=== PATIENT | male | born 1985 | race Caucasian/White ===

== ENCOUNTER 2018-12-10 10:55 | Emergency (ER) | payer OTHER ==
[2018-12-10 11:02] VITALS: BP 161/87
--- NOTE | 2018-12-10 11:03 | EDPHY ---
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 No complaint. Time Seen by Provider: 12/10/18 11:03 HPI/ROS: CHIEF COMPLAINT: Requesting assistance with alcohol dependence HISTORY OF PRESENT ILLNESS: The patient is a 33-year-old alcoholic who presents the emergency department requesting assistance with alcohol dependence. The patient reports he has been drinking approximately 3 bottles of wine a day over the past several months. The patient denies any seizure, abdominal pain or vomiting. The patient is interested in outpatient treatment for his likely impending withdrawal. The patient denies any suicidal homicidal ideation. The patient is accompanied by his spouse who is supportive in him going to outpatient detox today. The patient denies any additional acute medical complaints. REVIEW OF SYSTEMS: A comprehensive 10 point review of systems is otherwise negative aside from elements mentioned in the history of present illness. Source: Patient - Personal History Current Tetanus/Diphtheria Vaccine: Yes - Medical/Surgical History Hx Asthma: No Hx Chronic Respiratory Disease: No Hx Diabetes: No Hx Cardiac Disease: No Hx Renal Disease: No Hx Cirrhosis: No Hx Alcoholism: Yes Hx HIV/AIDS: No Hx Splenectomy or Spleen Trauma: No Other PMH: Detox, GERD, - Social History Smoking Status: Never smoked - Physical Exam Exam: General Appearance: Alert, no distress Eyes: Pupils equal and round no pallor or injection ENT, Mouth: Mucous membranes moist Respiratory: There are no retractions, lungs are clear to auscultation Cardiovascular: Regular rate and rhythm Gastrointestinal: Abdomen is soft and nontender, no masses, bowel sounds normal Neurological: A&O, normal motor function, normal sensory exam, normal cranial nerves Skin: Warm and dry, no rashes Musculoskeletal: Neck is supple nontender Extremities: symmetrical, full range of motion Psychiatric: Patient is oriented X 3, there is no agitation Constitutional: Initial Vital Signs Temperature (C) 36.7 C 12/10/18 10:59 Heart Rate 88 12/10/18 10:59 Respiratory Rate 16 12/10/18 10:59 Blood Pressure 161/87 H 12/10/18 10:59 O2 Sat (%) 93 12/10/18 10:59 O2 Delivery Mode Room Air Allergies/Adverse Reactions: No Known Allergies Allergy (Unverified 12/10/18 10:59) Medical Decision Making ED Course/Re-evaluation: The patient is nontoxic well-appearing. He was given 50 mg of Librium in the emergency department. The patient has been given the [facility] and is interested in going there today. Departure - Departure Disposition: Home, Routine, Self-Care Clinical Impression: Alcohol dependence Condition: Good Instructions: Alcohol Dependence (ED) Additional Instructions: 1. Please go to the [facility] for further assistance with alcohol dependence and withdrawal management. 2. While there, please talk to them about the possibility of receiving a Vivitrol injection. 3. Return to the ED for symptoms of severe withdrawal including vomiting, severe pain, seizure or other concerns. Referrals: [facility] [Outside] - As per Instructions
[2018-12-10] MEDS ORDERED: chlordiazePOXIDE 25 MG CAP PO ONE (11:09)
[2018-12-10] MEDS ORDERED: CHLORDIAZEPOXIDE 25MG PREPK#6 BTL TAKEHOME ONE ×2 (11:19→11:23)
== END 2018-12-10 11:20 | disposition home or self-care (01) ==
DX: F10.20 Alcohol dependence, uncomplicated (principal)

== ENCOUNTER 2019-01-28 12:55 | Emergency (ER) | payer OTHER | END 2019-01-28 14:15 | disposition home or self-care (01) ==